=== PATIENT | male | born 1960 | race Caucasian/White ===

== ENCOUNTER 2018-05-14 09:28 | Emergency (ER) | payer OTHER ==
[2018-05-14 09:44] VITALS: BP 140/81
--- NOTE | 2018-05-14 10:17 | UC ---
Estephania Gamboa Julia, scribed for Brandon Kaminski MD on 05/14/18 at 1003 . Skin Complaint HPI - HPI Summary HPI Summary: A 58 year old M presents to [facility] with a chief complaint of a tick bite that he removed a couple days ago from his umbilicus; he noticed some central clearance today. Pain is 3/10 in severity, upon triage. - History of Current Complaint Chief Complaint: UCSkin Time Seen by Provider: 05/14/18 09:36 Stated Complaint: TICK BITE Hx Obtained From: Patient Onset/Duration: Lasting Days, Worse Since - today Skin Exposure Onset/Duration: Days Ago Pain Intensity: 3 Pain Scale Used: 0-10 Numeric Location: Other - umbilicus Associated Signs & Symptoms: Positive: Rash Related History: Possible Reaction to: Insect - Allergy/Home Medications Allergies/Adverse Reactions: Allergies Allergy/AdvReac Type Severity Reaction Status Date / Time No Known Allergies Allergy Verified 05/14/18 09:45 Home Medications: Home Medications buPROPion HCl [Bupropion HCl Sr] 150 mg PO DAILY 05/14/18 [History Confirmed 04/26] Review of Systems Constitutional: Negative Skin: Rash - with central clearance All Other Systems Reviewed And Are Negative: Yes PMH/Surg Hx/FS Hx/Imm Hx Previously Healthy: Yes - Surgical History Surgical History: Yes Surgery Procedure, Year, and Place: hernia - Family History Known Family History: Positive: Hypertension - Social History Alcohol Use: Rare Substance Use Type: None Smoking Status (MU): Current Every Day Smoker Physical Exam - Summary Physical Exam Summary: VITAL SIGNS: Reviewed. GENERAL: Patient is a well-developed and nourished male who is lying comfortable in the stretcher. Patient is not in any acute respiratory distress. HEAD AND FACE: Normocephalic EYES: PERRLA, EOMI x 2. EARS: Hearing grossly intact. MOUTH: Oropharynx within normal limits. NECK: Supple, trachea is midline, no adenopathy, no JVD, no carotid bruit. CHEST: Symmetric, no tenderness at palpation LUNGS: Clear to auscultation bilaterally. No wheezing or crackles. CVS: Regular rate and rhythm, S1 and S2 present, no murmurs or gallops appreciated. ABDOMEN: Soft, non-tender. Bowel sounds are normal. No abdominal abnormal pulsations. EXTREMITIES: Full ROM in all major joints, no edema, no cyanosis or clubbing. NEURO: Alert and oriented x 3. No acute neurological deficits. Speech is normal and follows commands. SKIN: Dry and warm, Rash around umbilicus with central clearance Triage Information Reviewed: Yes Vital Signs: Initial Vital Signs Temp 98 F 05/14/18 09:40 Pulse 76 05/14/18 09:40 Resp 16 05/14/18 09:40 BP 140/81 05/14/18 09:40 Pulse Ox 100 05/14/18 09:40 Vital Signs Reviewed: Yes Course/Dx - Course Course Of Treatment: Patient with erythema with central draining around the umbilicus. The patient was medicated with doxycycline. He will follow with PCP in the next 2-3 days. - Diagnoses Provider Diagnoses: Tick bite Discharge - Sign-Out/Discharge Documenting (check all that apply): Discharge/Admit/Transfer - Discharge Plan Condition: Stable Disposition: HOME Prescriptions: DOXYcycline CAP(*) [DOXYcycline 100MG CAP(*)] 100 mg PO BID #28 cap Patient Education Materials: Tick Bite (ED) Referrals: [facility] [Outside] No Primary Care Phys,NOPCP [Primary Care Provider] - Additional Instructions: Take medications as instructed Increase your fluid intake Return to the UC if symptoms worsen - Billing Disposition and Condition Condition: STABLE Disposition: Home The documentation as recorded by the Estephania diggs Julia accurately reflects the service I personally performed and the decisions made by , Brandon Kaminski MD.
== END 2018-05-14 10:15 | disposition home or self-care (01) ==
LOC: UCEAST 09:28
DX: S30.861A Insect bite (nonvenomous) of abdominal wall, initial encounter (principal); W57.XXXA Bitten or stung by nonvenomous insect and other nonvenomous arthropods, initial encounter; Y92.9 Unspecified place or not applicable; F17.200 Nicotine dependence, unspecified, uncomplicated
CPT/HCPCS: 99202; G0463

== ENCOUNTER → 2019-01-04 11:28 | Emergency (ER) | payer OTHER ==
[~2019-01-04 11:28] MED LIST: HYDROcodone/ACETAMIN 5-325 MG* 1 TAB PO ONE; Lidocaine 1%* 5 ML VIAL INJ ONE
--- NOTE | 2019-01-04 12:00 | ED ---
Lower Extremity - HPI Summary HPI Summary: Patient is a 58-year-old male who presents emergency department for a left ankle injury that occurred just prior to arrival. Patient states he was walking down 2-3 steps from a house when he slipped on ice and twisted left lower leg. Patient denies head injury or loss of consciousness. Patient is unable to bear weight secondary to pain. Patient denies numbness, tingling or weakness. Symptoms are mild in severity. Walking and moving left ankle makes symptoms worse. Rest makes symptoms better. Denies significant past medical history. - History of Current Complaint Chief Complaint: EDExtremityLower Stated Complaint: FALL Time Seen by Provider: 01/04/19 11:48 Hx Obtained From: Patient Pain Intensity: 6 - Allergies/Home Medications Allergies/Adverse Reactions: Allergies Allergy/AdvReac Type Severity Reaction Status Date / Time No Known Allergies Allergy Verified 05/14/18 09:45 Home Medications: Home Medications Cyanocobalamin INJ * [Vitamin B12 INJ *] 1 vial IM MONTHLY 01/04/19 [History Confirmed 01/04/19] Cyanocobalamin TAB* [Vitamin B12 TAB*] 500 mcg PO DAILY 01/04/19 [History Confirmed 01/04/19] PMH/Surg Hx/FS Hx/Imm Hx Previously Healthy: Yes Musculoskeletal History: Denies: Hx Osteoporosis - Surgical History Surgery Procedure, Year, and Place: hernia Infectious Disease History: No Infectious Disease History: Denies: Traveled Outside the [place] in Last 30 Days - Family History Known Family History: Positive: Hypertension - Social History Occupation: Works From/At Home Lives: With Family Alcohol Use: None Substance Use Type: Reports: None Smoking Status (MU): Current Every Day Smoker Review of Systems Positive: Other - left ankle pain Skin: Negative Neurological: Negative Negative: Weakness, Paresthesia, Numbness All Other Systems Reviewed And Are Negative: Yes Physical Exam Triage Information Reviewed: Yes Vital Signs On Initial Exam: Initial Vitals Temp Pulse Resp BP Pulse Ox 97.9 F 81 18 148/92 97 01/04/19 11:39 01/04/19 11:39 01/04/19 11:39 01/04/19 11:39 01/04/19 11:39 Vital Signs Reviewed: Yes Appearance: Positive: Well-Appearing - Pt. lying in bed in NAD. Splint on left ankle Skin: Positive: Warm, Dry Head/Face: Positive: Normal Head/Face Inspection Eyes: Positive: Normal, EOMI Neck: Positive: Supple Musculoskeletal: Positive: Other - Marked diffuse edema to left ankle with pain. Mild deformity. No breaks in skin. NO foot pain or pain over 5th metatarsal base. No proximal tib/fib, knee or hip pain. Neurological: Positive: Normal, CN Intact II-III Psychiatric: Positive: Affect/Mood Appropriate Procedures - Splinting Left Lower Extremity Hand-Made Type: plaster Pre-Proc Neuro Vasc Exam: normal Post-Proc Neuro Vasc Exam: normal Diagnostics - Vital Signs Vital Signs Temp Pulse Resp BP Pulse Ox 01/04/19 11:39 97.9 F 81 18 148/92 97 - Laboratory Lab Statement: Any lab studies that have been ordered have been reviewed, and results considered in the medical decision making process. Lower Extremity Course/Dx - Course Course Of Treatment: Pt. presenting with likely left ankle fracture. Neurovascularly intact. 2 lortab given. Xrays shows likely trimalleolar fx with lateral andposterior subluxation, per radiology. I spoke with [facility] Dr. Potts and ankle was reduced by ortho Arlene BASHIR with a hematoma block-- please see her progress note for details. Post reduction xray shows improved alignment. Rx for pain medication sent. CARD GRINDER HELPER reviewed. Pt. to call ortho office tomorrow for apt. Advised his injury will require outpt. sx. Advised to keep slint in place. To ice and elevate. Pain medication as directed. To return ER for increased pain, swelling, discoloration, tingling/numbness, or if concerned. Pt. understands and agrees with plan. - Diagnoses Differential Diagnosis/HQI/PQRI: Positive: Fracture (Closed), Sprain, Strain Provider Diagnoses: Trimalleolar fracture of ankle, closed Discharge - Sign-Out/Discharge Documenting (check all that apply): Patient Departure Patient Received Moderate/Deep Sedation with Procedure: No - Discharge Plan Condition: Improved Disposition: HOME Prescriptions: Hydrocodone/Acetaminophen [Hydrocodone-Acetamin 5-325 mg] 1 each PO Q6H #12 tablet MDD 4 Patient Education Materials: Ankle Fracture (ED) Referrals: Oscar Valera DO [Primary Care Provider] - Christ Potts MD [Medical Doctor] - Additional Instructions: Call Dr. Potts' office today to schedule a close follow up appointment Keep splint in place Ice and elevate intermittently Pain medication as directed Return to ER for increased pain, swelling, discoloration, tingling/numbness to left lower leg - Billing Disposition and Condition Condition: IMPROVED Disposition: Home
--- NOTE | 2019-01-04 15:54 | CONS ---
CONSULTATION REPORT: DATE OF CONSULT: 01/04/19 ATTENDING ORTHOPEDIC PROVIDER: Dr. Christ Potts. CHIEF COMPLAINT: Left ankle fracture. HISTORY OF PRESENT ILLNESS: Mr. Ramírez is a 58-year-old male who presents to the emergency room today, 01/04/19, after a slip and fall on ice at home. He did not have any associated chest pain, shortness of breath, dizziness, headache, change in vision associated with the fall. He had immediate left ankle pain and inability to bear weight, and a friend brought him to the emergency room. At time of exam, he has sharp pain in his left ankle worse with movement better with rest. He has no pain of his joints or extremities otherwise. He did not hit his head. He has no numbness or paresthesias of the left lower extremity. PAST MEDICAL HISTORY: Includes daily smoker, none other reported PAST SURGICAL HISTORY: Includes surgical repair of a hernia. No adverse reaction to anesthesia. ALLERGIES: No known drug allergies. SOCIAL HISTORY: The patient lives alone. He is a community ambulator without an assistive device. He smokes half-a-pack per day. He is attempting to quit and takes Wellbutrin in this attempt. He does not use alcohol. He does not use drugs. REVIEW OF SYSTEMS: General: No recent illness. No fever. No chills. Head: No head trauma. No headache. No change in vision. Cardiac: No irregular beats. No chest pain. Respiratory: No shortness of breath or cough. Abdomen : No abdominal pain. No nausea, vomiting, diarrhea. : No dysuria. Musculoskeletal: Left lower extremity pain, particularly left ankle. No pain of extremities or joints otherwise. Neuro: Denies any numbness or paresthesias. Hematology: No history of blood clots. PHYSICAL EXAM: Vital Signs: Temperature 97.9, pulse rate 81, respiratory rate 18, oxygen saturation 97%, blood pressure 148/92. General: Well appearing, in no acute distress. Cardiac: S1, S2. Respiratory: Clear to auscultation bilaterally. Abdomen: Bowel sounds normoactive. Soft, nontender. No guarding. No rigidity. Musculoskeletal: Moves bilateral upper extremities well without any tenderness to palpation. Skin envelope is intact. No obvious bony deformity. Right lower extremity: Skin envelope intact; able to flex and extend hip, knee, ankle, and digits without pain; nontender to palpation throughout the extremity. Left lower extremity: Skin envelope intact; nontender to palpation about the hip and knee; he is tender to palpation over the ankle; he is able to flex and extend the hip and knee without pain; able to wiggle toes without pain; calf is soft. The left ankle is angulated with prominence of the medial malleolus. Neuro: Sensation is intact to light touch distally throughout bilateral upper and lower extremities. Vascular: DP 2+ bilaterally. Capillary refill less than 2 seconds distally in bilateral lower extremities. DIAGNOSTIC STUDIES/LAB DATA: Left ankle x-rays: Trimalleolar fracture with lateral and posterior subluxation of the talus. PROCEDURE NOTE: Verbal and written consent was obtained for reduction of the ankle. ER physician collections assistant, Karla, was present for this. Hematoma block was placed, 1% lidocaine 5 cc. Ankle was reduced, procedure tolerated very well by the patient. Lower leg splint was placed. He was neurovascularly intact distally after reduction. Able to wiggle his toes. Capillary refill less than 2 seconds. Sensation intact distally. Post reduction films have been reviewed, bony alignment is in satisfactory position. ASSESSMENT: Left ankle trimalleolar fracture, now status post reduction. PLAN: The patient will be nonweightbearing on the left lower extremity. Discharge home and follow up with our foot and ankle specialist Dr. Kasi Fountain tomorrow. He should call for appointment at [phone]. KRYSTEN BOYD [id number]/ARETHA #: [id number] MARY BETH
[2019-01-04 16:18] VITALS: BP 147/82
== END | disposition home or self-care (01) ==
LOC: ED 11:28
DX: S82.852A Displaced trimalleolar fracture of left lower leg, initial encounter for closed fracture (principal); X50.1XXA Overexertion from prolonged static or awkward postures, initial encounter; Y93.01 Activity, walking, marching and hiking; Y92.009 Unspecified place in unspecified non-institutional (private) residence as the place of occurrence of the external cause; F17.200 Nicotine dependence, unspecified, uncomplicated
CPT/HCPCS: 27840; 99283

== ENCOUNTER 2019-01-13 08:28 | Observation (INO) | payer OTHER ==
[~2019-01-13 08:28] MED LIST changes: +Acetaminophen TAB* 325 MG PO ONE; +Buffered Lidocaine 1% SYRIN* 1 ML/SYRINGE INTRADERM ONE; +Gabapentin CAP(*) 300 MG PO ONE; -HYDROcodone/ACETAMIN 5-325 MG* 1 TAB PO ONE; +Lactated Ringers 1000 ML Bag* 1,000 ML IV SCH; -Lidocaine 1%* 5 ML VIAL INJ ONE
[2019-01-13] MEDS ORDERED: ROPIVACAINE 5 MG/ML 30 ML BTL (0.5%) ONE (10:16)
[2019-01-13] MEDS ORDERED: Acetaminophen TAB* 325 MG ONE (10:20)
[2019-01-13] MEDS ORDERED: Gabapentin CAP(*) 300 MG ONE (10:20)
[2019-01-13] MEDS ORDERED: Buffered Lidocaine 1% SYRIN* 1 ML/SYRINGE INTRADERM ONE (10:21)
[2019-01-13] MEDS ORDERED: ceFAZolin 2 GM PREMIX in ORs 2 GM/50 ML BAG IVPB ONE (10:21)
[2019-01-13] MEDS ORDERED: fentaNYL* 50 MCG/ML 2 ML VIAL (100 MCG VIAL) ONE ×2 (10:33→11:56)
[2019-01-13] MEDS ORDERED: Midazolam* 1 MG/ML 2 ML VIAL (2 MG) ONE (10:33)
[2019-01-13] MEDS ORDERED: Famotidine IV* 10 MG/ML 2 ML (20 mg) ONE (10:56)
[2019-01-13] MEDS ORDERED: Lidocaine 2% PF * 5 ML VIAL ONE (11:21)
[2019-01-13] MEDS ORDERED: Dexamethasone IV* 4 MG/ML 1 ML (4 MG) ONE ×2 (11:23→11:57)
[2019-01-13] MEDS ORDERED: Propofol* 10 MG/ML 20 ML BTL ONE (11:23)
[2019-01-13] MEDS ORDERED: Ketorolac INJ* 30 MG/ML 1 ML VIAL ONE (11:23)
[2019-01-13] MEDS ORDERED: Levalbuterol HFA INHALER* 1 PUFF MDI ONE (12:15)
[2019-01-13] MEDS ORDERED: Ondansetron INJ* 2 MG/ML VIAL IV PRN (12:43)
[2019-01-13] MEDS ORDERED: Morphine INJ* 2 MG/ML 1 ML SYRINGE (TWO MG - NEW SYRINGE VERSION) IV PRN (12:43)
[2019-01-13] MEDS ORDERED: traZODone TAB* 50 MG TAB PO PRN (12:43)
[2019-01-13] MEDS ORDERED: oxyCODONE TAB* 5 MG TAB PO PRN (12:47)
--- NOTE | 2019-01-13 12:59 | OP ---
Operative Report - Blank - Operative Report Date of Operation: 01/13/19 Note: PATIENT: Kg Ramírez DATE OF : 1960 DATE OF SURGERY: 01/13/2019 SURGEON: Kasi Fountain MD SOFTWARE IMPLEMENTATION PROJECT MANAGER: KRYSTEN Reyna, whos assistance was necessary for positioning, retraction, help with instrumentation, and closure. ANESTHESIOLOGIST: Dr. Tsang PREOPERATIVE DIAGNOSIS: Left trimalleolar ankle fracture and disruption of the distal tibia-fibula syndesmosis. POSTOPERATIVE DIAGNOSIS: Left trimalleolar ankle fracture and disruption of the distal tibia-fibula syndesmosis. OPERATION: 1. Left ankle lateral malleolar open reduction and internal fixation of trimalleolar ankle fracture. 2. Left distal tibia-fibula syndesmosis open reduction and internal fixation. ANESTHESIA: General + block IMPLANTS: Arthrex ankle fracture set plate and screws TOURNIQUET TIME: Less than 1 hour with a well-padded thigh tourniquet at 250mmHg SPECIMENS: none ESTIMATED BLOOD LOSS: minimal COMPLICATIONS: none STATUS: Stable from the operating room to the recovery room and then home. INDICATIONS FOR PROCEDURE: Bryan sustained a left ankle fracture dislocation. Both operative and non operative treatment alternatives were reviewed. Further, the nature and risks of surgery were reviewed in careful detail, in the office as well as the pre- operative holding area. Our discussions regarding the risks of surgery included , but were not limited to, infection, wound problems, nerve injury, neuroma, RSD , persistent symptoms, blood clot, nonunion, malunion, post-traumatic arthritis , hardware failure, failure of the surgery, and even the remote chance of catastrophic complication, including loss of limb. DESCRIPTION OF PROCEDURE: The patient was seen in the preoperative holding unit and informed written consent was obtained. The appropriate extremity was marked. The patient was then brought to the operating room and carefully positioned on the operating room table. Anesthesia was induced. All bony prominences were padded with great care. A well-padded thigh tourniquet was placed. A chlorhexidine based pre- scrub was performed followed by a chloraprep prep and drape in standard sterile fashion. A surgical safety pause was then conducted in which we confirmed the appropriate patient, extremity, planned procedure, availability of equipment, indication and administration of prophylactic antibiotics, and DVT prophylaxis in the form of a compression boot on the non-surgical extremity. I began with Esmarch exsanguination of the limb and inflated the tourniquet. I then utilized a laterally based incision overlying the distal fibula. Great care was taken to protect the superficial peroneal nerve, which was not visualized within the field of view. I dissected down through the soft tissue layers to expose the distal fibula. I then exposed the fracture. Fracture hematoma was removed. I gained a reduction utilizing a pointed reduction clamp. I placed an anatomic arthrex plate laterally and then confirmed the reduction and the position of the plate fluoroscopically. I placed screws to hold the plate to the bone. The syndesmosis was disrupted so I proceeded with open reduction and internal fixation of the distal tib-fib syndesmosis. We held the syndesmosis reduced and were pleased with syndesmotic reduction both clinically, under direct visualization, as well as fluoroscopically. I utilized two 3.5 mm screws with excellent purchase. Final fluoroscopic images were obtained demonstrating a good reduction of both the fracture and the syndesmosis. At this point, we irrigated copiously and then closed in layers meticulously utilizing 3-0 Monocryl for the deep and subdermal layers and kirk for the skin. A sterile dressing was then applied followed by a splint with the ankle in a neutral position. The patient was then awakened from anesthesia and transferred to the recovery room in stable condition. There were no complications. All needle and sponge counts were correct at the end of the case. ATTESTATION: I attest I was present and scrubbed and performed the critical portions of the procedure myself. POSTOPERATIVE PLAN: The postop plan is for [id number] for an anticipated duration of 6 weeks. Follow-up will be in 2 weeks. At that time we will likely transition into a short leg cast.
[2019-01-13] MEDS: Acetaminophen TAB* 325 MG PO SCH ×2 (13:00→20:30)
[2019-01-13] MEDS ORDERED: ceFAZolin 1 GM ADVAN(*) 1 GM in NS 0.9% 50 ML* 50 ML IVPB SCH (13:00)
[2019-01-13] MEDS ORDERED: Levalbuterol 0.63MG/3ML NEB* UNIT OF USE INH PRN (13:10)
[2019-01-13] MEDS ORDERED: PROCHLORPERAZINE INJ 5 MG/ML 2 ML VIAL IV PRN (13:10)
[2019-01-13] MEDS ORDERED: DiMENhydriNATE IV* 50 MG/ML VIAL IV PUSH PRN (13:10)
[2019-01-13] MEDS ORDERED: fentaNYL* 50 MCG/ML 2 ML VIAL (100 MCG VIAL) IV PRN (13:10)
[2019-01-13] MEDS ORDERED: Naloxone* 0.4 MG/ML 1 ML VIAL IV PRN (13:10)
[2019-01-13] MEDS: Lactated Ringers 1000 ML Bag* 1,000 ML IV SCH (14:03)
[2019-01-13] MEDS: ceFAZolin 1 GM in Dextrose (*) 1 GM/50 ML BAG IVPB SCH (19:11)
[2019-01-13] MEDS: Magnesium Hydroxide LIQ* 30 ML UDC PO SCH (20:29)
[2019-01-13] MEDS: Calcium Carbonate CHEW TAB* 500 MG (TUMS) PO SCH (20:29)
[2019-01-13] MEDS: Ibuprofen TAB* 400 MG PO PRN (20:29)
[2019-01-13] MEDS: Docusate CAP* 100 MG PO SCH (20:30)
[2019-01-13] MEDS: buPROPion SR TAB.SR* 150 MG PO SCH (20:37)
[2019-01-13] MEDS: oxyCODONE TAB* 5 MG TAB PO PRN (22:50)
[2019-01-14] MEDS: ceFAZolin 1 GM in Dextrose (*) 1 GM/50 ML BAG IVPB SCH ×2 (03:46→11:34)
[2019-01-14] MEDS: Lactated Ringers 1000 ML Bag* 1,000 ML IV SCH (03:49)
[2019-01-14] MEDS: Acetaminophen TAB* 325 MG PO SCH ×2 (05:18→14:30)
[2019-01-14 06:36] LABS: Hematocrit 38 % (42-52); Hemoglobin 12.5 g/dl (14.0-18.0)
[2019-01-14 06:50] LABS: BUN/Creatinine Ratio 20.9 (8-20); EGFR African American 147.9 (>60); EGFR Non-African American 122.3 (>60); Potassium 4.2 mmol/L (3.5-5.0)
[2019-01-14] MEDS: oxyCODONE TAB* 5 MG TAB PO PRN ×2 (06:55→11:33)
[2019-01-14] MEDS: buPROPion SR TAB.SR* 150 MG PO SCH (08:36)
[2019-01-14] MEDS: Docusate CAP* 100 MG PO SCH (08:37)
[2019-01-14] MEDS: Calcium Carbonate CHEW TAB* 500 MG (TUMS) PO SCH (08:37)
[2019-01-14] MEDS: Magnesium Hydroxide LIQ* 30 ML UDC PO SCH (08:38)
[2019-01-14] MEDS ORDERED: Cholecalciferol TAB* 1000 UNITS PO SCH (09:00)
[2019-01-14] MEDS ORDERED: Cyanocobalamin TAB* 500 MCG PO SCH (09:00)
[2019-01-14] MEDS ORDERED: Aspirin TAB* 325 MG PO SCH (09:00)
[2019-01-14] MEDS: Ibuprofen TAB* 400 MG PO PRN (10:07)
--- NOTE | 2019-01-14 11:58 | PN ---
Progress Note - Progress Note Date of Service: 01/14/19 SOAP: Subjective: []Patient seen at bedside and later in hallway with PT. He is doing well. Pain well managed. Ambulated well NWB LLE. Ready to go home to friend's home in [place] this afternoon. Objective: [] Vital Signs Temp 98.2 F 01/14/19 08:08 Pulse 71 01/14/19 08:08 Resp 16 01/14/19 11:33 BP 120/72 01/14/19 08:08 Pulse Ox 97 01/14/19 08:08 Intake & Output 01/13/19 01/14/19 01/14/19 18:59 06:59 18:59 Intake Total 1130 1511 680 Output Total 300 880 Balance 830 631 680 Weight 170 lb Intake: IV Fluids 900 556 LR 850 556 NS 50ML, Cefazolin 2G 50 IVPB 55 ABX - CEFAZOLIN 55 Oral 230 900 680 Output: Urine 300 880 Other: Date of Last Bowel 755 Movement Laboratory Results - last 24 hr 01/14/19 01/14/19 06:12 06:13 Hgb 12.5 L Hct 38 L Sodium 134 L Potassium 4.2 Chloride 104 Carbon Dioxide 26 Anion Gap 4 BUN 14 Creatinine 0.67 Est GFR ( Amer) 147.9 Est GFR (Non-Af Amer) 122.3 BUN/Creatinine Ratio 20.9 H Glucose 111 H Calcium 9.0 Left ankle splint dry and intact toes pink and warm, able to wiggle slightly in splint Assessment: []s/p ORIF trimalleolar fracture dislocation left ankle POD #1 Plan: []Remain NWB LLE Aspirin for DVT prophylaxis at home Elevate LLE when sedentary follow up in 10-14 days in office with Dr. Fountain
[2019-01-14 12:02] VITALS: BP 136/72
--- NOTE | 2019-01-17 11:19 | DS ---
DISCHARGE SUMMARY: DATE OF ADMISSION: 01/13/19 DATE OF DISCHARGE: 01/14/19 ATTENDING PHYSICIAN: Kasi Fountain MD. ADMISSION DIAGNOSIS: Left trimalleolar ankle fracture with disruption of distal tibia fibular syndes mosis. DISCHARGE DIAGNOSIS: Left trimalleolar ankle fracture with disruption of distal tibia fibular syndes mosis. SURGERY PERFORMED: Left ankle lateral malleolar open reduction and internal fixation and left distal tib-fib syndesmosis open reduction and internal fixation. HOSPITAL COURSE: The patient is a 58-year-old male who slipped on ice and twisted his left ankle yovanny taining the aforementioned injuries on 01/04/2019. He was initially seeing in the Emergency Departme nt at [facility] where he underwent closed reduction and splinting and later seen in the office by Dr. Hemal bello, who recommended surgical fixation. He elected to proceed and was taken to the operating room un ivan his care on the day of 01/13/2019. He tolerated the aforementioned procedure without any complic ations. He progressed satisfactorily with his physical therapy and occupational therapy goals mainta ining in nonweightbearing status on the left lower extremity. He was found to be stable medically an d orthopedically for discharge to [facility] on 01/14/2019. CONDITION ON DISCHARGE: He was afebrile with vital signs stable. The splint on the left lower extre mity was clean, dry, and intact. His toes were pink and warm with full sensation distally. PLAN: The patient discharged to home on 01/14/2019. He will follow up in the office with Dr. Maxwell ponce in 10 to 14 days postoperatively. He was provided with a prescription of Percocet 5/325 one to tw o tablets p.o. every 4 to 6 hours p.r.n. pain as well as Flexeril 10 mg p.o. t.i.d. p.r.n. muscle spa sm. He will use aspirin 325 mg daily for 2 weeks. He will be seen in the office in 10 to 14 days wi tato Fountain. All questions were answered. KRYSTEN JONES [id number]/[facility] #: [id number]
== END 2019-01-14 15:14 | disposition home or self-care (01) ==
LOC: OR 08:28 → EDSTATUS 10:45 → SSU 16:14
PROVIDERS: ADMIT Orthopaedic Surgery; ATTEND Orthopaedic Surgery
DX: S82.85 Trimalleolar fracture of lower leg (principal); W00.0XXD Fall on same level due to ice and snow, subsequent encounter; F17.210 Nicotine dependence, cigarettes, uncomplicated
CPT/HCPCS: 36415; 76000; 80048; 85014; 85018; 96365; 96366; 96375; A9270-GY; G0378; J0690; J1100; J1885; J2250; J2704; J2795; J3010